=== PATIENT | male | born 1990 | race Caucasian/White ===

== ENCOUNTER 2018-04-25 10:44 | Emergency (ER) | payer BC ==
[~2018-04-25] VITALS: Ht 195.6 cm; Wt 63.5 kg
[2018-04-25 10:52] VITALS: BP 103/62
[2018-04-25] MEDS ORDERED: KETO15CR2 TP (11:14)
[2018-04-25] MEDS ORDERED: CEPH-264 PO (11:14)
--- NOTE | 2018-04-25 11:24 | PHYS DOC ---
Past History Past Medical History: No Pertinent History Past Surgical History: No Surgical History Alcohol Use: None Drug Use: None Adult General Chief Complaint Chief Complaint: FOOT INJURY PAIN HPI HPI 28-year-old male presents with bilateral foot pain and itching. The patient has been an outdoor festival and has several bug bites. He thought that his feet just had athlete's foot because even itching last couple of days. This morning when he woke up, he had a swollen right second toe as well as a red, swollen left fifth digit. The toe on the right foot has some serosanguineous drainage. Patient denies fever or chills. He has some bug bites on both of his lower extremities. One that he has itched on the right thigh has surrounding erythema of 3 cm. Patient has been wearing one spray, but it is not working. He has no other complaints. Review of Systems Review of Systems Constitutional: Denies fever or chills [] Eyes: Denies change in visual acuity, redness, or eye pain [] HENT: Denies nasal congestion or sore throat [] Respiratory: Denies cough or shortness of breath [] Cardiovascular: No additional information not addressed in HPI [] GI: Denies abdominal pain, nausea, vomiting, bloody stools or diarrhea [] : Denies dysuria or hematuria [] Musculoskeletal: Pain and pruritus in both feet[] Integument: Bulbar bites bilateral lower extremities[] Neurologic: Denies headache, focal weakness or sensory changes [] Endocrine: Denies polyuria or polydipsia [] All other systems were reviewed and found to be within normal limits, except as documented in this note. Allergies Allergies Allergies Coded Allergies Type Severity Reaction Last Updated Verified No Known Drug Allergies 04/25/18 No Physical Exam Physical Exam Constitutional: Well developed, well nourished, no acute distress, non-toxic appearance. [] HENT: Normocephalic, atraumatic, bilateral external ears normal, oropharynx moist, no oral exudates, nose normal. [] Eyes: PERRLA, EOMI, conjunctiva normal, no discharge. [] Neck: Normal range of motion, no tenderness, supple, no stridor. [] Cardiovascular:Heart rate regular rhythm, no murmur [] Lungs & Thorax: Bilateral breath sounds clear to auscultation [] Abdomen: Bowel sounds normal, soft, no tenderness, no masses, no pulsatile masses. [] Skin: 3 cm diameter cellulitis in the right thigh, right second toe warm and erythematous with serosanguineous drainage. Left fifth digit erythematous with some skin cracking consistent with fungal infection.. [] Back: No tenderness, no CVA tenderness. [] Extremities: No tenderness, no cyanosis, no clubbing, ROM intact, no edema. [] Neurologic: Alert and oriented X 3, normal motor function, normal sensory function, no focal deficits noted. [] Psychologic: Affect normal, judgement normal, mood normal. [] Current Patient Data Vital Signs Vital Signs Date Time Temp Pulse Resp B/P (MAP) Pulse Ox O2 Delivery O2 Flow Rate FiO2 04/25/18 10:52 97.7 67 16 98 Room Air EKG EKG [] Radiology/Procedures Radiology/Procedures [] Course & Med Decision Making Course & Med Decision Making Pertinent Labs and Imaging studies reviewed. (See chart for details) The patient appears to have athlete's foot as well as cellulitis. I believe the toe on the right foot is cellulitic as well as a lesion up on his thigh on the same leg. I will treat him with both ketoconazole cream as well as Keflex for 7 days. Also advised that he purchased permethrin to treat his clothes prior to going to the outdoor festival. [] Dragon Disclaimer Dragon Disclaimer This electronic medical record was generated, in whole or in part, using a voice recognition dictation system. Departure Departure: Impression: Primary Impression: Cellulitis of leg, right Additional Impressions: Insect bites Athletes foot Disposition: 01 HOME, SELF-CARE Condition: STABLE Patient Instructions: Athlete's Foot, [id number], Cellulitis, [id number] Additional Instructions: Purchased permethrin spray at a local sporting goods store and [employer] clothing and shoes. Be sure to let them liquid dry before you where the clothing.. Scripts Cephalexin (KEFLEX) 500 Mg Capsule 2 CAP PO BID for 7 Days, #28 CAP Prov: MAGALY CONNELLY DO 04/25/18 Ketoconazole (KETOCONAZOLE) 15 Gm Cream..g. 1 KARY TP BID, #60 GM 1 Refill Prov: MAGALY CONNELLY DO 04/25/18 Problem Qualifiers MAGALY CONNELLY DO April 25, 2018 11:24
== END 2018-04-25 11:17 | disposition home or self-care (01) ==
LOC: ER 10:44
DX: S90.862A Insect bite (nonvenomous), left foot, initial encounter (principal); S90.861A Insect bite (nonvenomous), right foot, initial encounter; L03.115 Cellulitis of right lower limb; B35.3 Tinea pedis; W57.XXXA Bitten or stung by nonvenomous insect and other nonvenomous arthropods, initial encounter; Y93.89 Activity, other specified; Y99.8 Other external cause status; Y92.89 Other specified places as the place of occurrence of the external cause
CPT/HCPCS: 99283